=== PATIENT | female | born 1980 | race Caucasian/White ===

== ENCOUNTER 2019-03-29 23:54 | Observation (INO) | payer MEDICAID ==
[2019-03-30] MEDS ORDERED: Activated Charcoal/Sorbitol Susp 50 GM/240 ML Bottle PO ONE (00:06)
--- NOTE | 2019-03-30 00:34 | EDM.PDOCBH ---
ED HPI GENERAL MEDICAL PROBLEM - General Stated Complaint: OVERDOSE Time Seen by Provider: 03/30/19 00:29 Source of Information: Reports: Patient History Limitations: Reports: No Limitations - History of Present Illness INITIAL COMMENTS - FREE TEXT/NARRATIVE: 38 yo female who was brought in by EMS due to an alleged overdose.She apparently took several tabs of 0.5 mg Clonazepam and Lunesta. She came in with 30 tab bottles that were filled on 03/17 that were empty. She took to "end it all" and "make it stop". She feels hopeless, unworthy and a failure. She feels that she has been rejected by every one and is making every one miserable. She is being treated by a psychiatrist in [place]. Her diagnosis is MDD,ARCENIO and Panic attack Disorder. Aniya endorses dry mouth,and thirst but she denies any other symptoms. - Related Data Allergies Allergy/AdvReac Type Severity Reaction Status Date / Time aspirin Allergy Chest Verified 03/30/19 01:53 Presssure hydrocodone [From Vicodin] Allergy Hives Verified 03/30/19 01:53 Home Meds: Home Meds ClonazePAM [KlonoPIN] 0.5 mg PO BEDTIME PRN 03/30/19 [History] DULoxetine [Cymbalta] 120 mg PO DAILY 03/30/19 [History] Eszopiclone [Lunesta] 3 mg PO BEDTIME PRN 03/30/19 [History] Past Medical History Cardiovascular History: Reports: Hypertension Musculoskeletal History: Reports: Back Pain, Chronic Psychiatric History: Reports: Anxiety, Depression Endocrine/Metabolic History: Reports: Obesity/BMI 30+ - Past Surgical History GI Surgical History: Reports: Cholecystectomy Musculoskeletal Surgical History: Reports: Shoulder Surgery, Other (See Below) Other Musculoskeletal Surgeries/Procedures:: back surgery Social & Family History - Family History Family Medical History: Noncontributory - Caffeine Use Caffeine Use: Reports: Soda ED ROS GENERAL - Review of Systems Review Of Systems: ROS reveals no pertinent complaints other than HPI. ED EXAM, BEHAVIORAL HEALTH - Physical Exam Exam: See Below Exam Limited By: No Limitations General Appearance: Alert, Lethargic Ears: Normal External Exam Nose: Normal Inspection Throat/Mouth: Normal Inspection Head: Atraumatic, Normocephalic Neck: Normal Inspection Respiratory/Chest: No Respiratory Distress, Lungs Clear Cardiovascular: Normal Peripheral Pulses, No JVD, Tachycardia GI/Abdominal: Normal Bowel Sounds, Soft, Non-Tender Extremities: Normal Inspection Neurological: Alert, CN II-XII Intact, Normal Reflexes, Oriented x 3 Psychiatric: Alert, Normal Cognition, Oriented, Flat Affect, Withdrawn, Suicidal Plan, Suicidal Thoughts Skin Exam: Warm EKG INTERPRETATION EKG Date: 03/30/19 COURSE, BEHAVIORAL HEALTH COMP - Course Vital Signs: Last Vital Signs Temp 98.1 F 03/30/19 05:47 Pulse 84 03/30/19 05:47 Resp 18 03/30/19 05:47 BP 134/89 03/30/19 05:47 Pulse Ox 98 03/30/19 05:47 Orders, Labs, Meds: Active Orders 24 hr Category Date Time Status Patient Status [ADT] Routine ADT 03/30/19 01:04 Active Cardiac Monitoring [RC] CONTINUOUS Care 03/30/19 01:05 Active EKG Documentation Completion [RC] ASDIRECTED Care 03/30/19 00:06 Active Intake and Output [RC] QSHIFT Care 03/30/19 01:05 Active Oxygen Therapy [RC] PRN Care 03/30/19 01:04 Active Vital Signs [RC] Q4H Care 03/30/19 01:04 Active ACETAMINOPHEN [CHEM] AM Lab 03/30/19 06:18 Received COMPREHENSIVE METABOLIC PN,CMP [CHEM] AM Lab 03/30/19 06:18 Received SALICYLATE [CHEM] AM Lab 03/30/19 06:18 Received Sodium Chloride 0.9% [Saline Flush] Med 03/30/19 00:06 Active 10 ml FLUSH ASDIRECTED PRN Peripheral IV Insertion Adult [OM.PC] Routine Oth 03/30/19 00:06 Ordered Resuscitation Status Routine Resus Stat 03/30/19 01:04 Ordered EKG 12 Lead [EK] Routine Ther 03/30/19 00:06 Ordered Medication Orders Acetaminophen (Tylenol) 650 mg PO Q4H PRN PRN Reason: Pain Last Admin: 03/30/19 06:41 Dose: 650 mg Sodium Chloride (Saline Flush) 10 ml FLUSH ASDIRECTED PRN PRN Reason: Keep Vein Open Last Admin: 03/30/19 02:50 Dose: 10 ml Laboratory Tests 03/30/19 03/30/19 03/30/19 Range/Units 00:38 00:38 00:38 WBC 5.8 (4.5-12.0) X10-3/uL RBC 4.97 (3.23-5.20) x10(6)uL Hgb 13.2 (11.5-15.5) g/dL Hct 40.7 (30.0-51.3) % MCV 81.9 (80-96) fL MCH 26.6 L (27.7-33.6) pg MCHC 32.5 (32.2-35.4) g/dL RDW 19.1 H (11.5-15.5) % Plt Count 280 (125-369) X10(3)uL MPV 8.2 (7.4-10.4) fL Neut % (Auto) 47.9 (46-82) % Lymph % (Auto) 31.7 (13-37) % [place] % (Auto) 10.6 (4-12) % Eos % (Auto) 9 H (1.0-5.0) % Baso % (Auto) 1 (0-2) % Neut # (Auto) 2.9 (1.6-8.3) # Lymph # (Auto) 1.8 (0.6-5.0) # [place] # (Auto) 0.6 (0.0-1.3) # Eos # (Auto) 0.5 (0.0-0.8) # Baso # (Auto) 0.0 (0.0-0.2) # Sodium 139 (135-145) mmol/L Potassium 3.3 L (3.5-5.3) mmol/L Chloride 104 (100-110) mmol/L Carbon Dioxide 28 (21-32) mmol/L BUN 13 (7-18) mg/dL Creatinine 0.8 (0.55-1.02) mg/dL Est Cr Clr Drug Dosing TNP Estimated GFR (MDRD) > 60 (>60) BUN/Creatinine Ratio 16.3 (9-20) Glucose 130 H (80-116) mg/dL Calcium 8.8 (8.6-10.2) mg/dL Total Bilirubin 0.7 (0.1-1.3) mg/dL AST 16 D (5-25) IU/L ALT 26 D (12-36) U/L Alkaline Phosphatase 97 (56-112) IU/L Total Protein 7.1 (6.0-8.0) g/dL Albumin 3.6 (3.5-5.2) g/dL Globulin 3.5 g/dL Albumin/Globulin Ratio 1.0 HCG, Quant < 5 L (<5) mIU/mL Salicylates (<2.8) mg/dL Urine Opiates Screen (NEGATIVE) Ur Oxycodone Screen (NEGATIVE) Ur Propoxyphene Screen (NEGATIVE) Acetaminophen (<2) ug/mL Ur Barbituates Screen (NEGATIVE) Ur Tricyclics Screen (NEGATIVE) Ur Phencyclidine Scrn (NEGATIVE) Ur Amphetamine Screen (NEGATIVE) Urine MDMA Screen (NEGATIVE) U Benzodiazepines Scrn (NEGATIVE) U Cocaine Metab Screen (NEGATIVE) U Marijuana (THC) Screen (NEGATIVE) Ethyl Alcohol < 0.03 (<0.03) % 03/30/19 03/30/19 Range/Units 00:38 00:59 WBC (4.5-12.0) X10-3/uL RBC (3.23-5.20) x10(6)uL Hgb (11.5-15.5) g/dL Hct (30.0-51.3) % MCV (80-96) fL MCH (27.7-33.6) pg MCHC (32.2-35.4) g/dL RDW (11.5-15.5) % Plt Count (125-369) X10(3)uL MPV (7.4-10.4) fL Neut % (Auto) (46-82) % Lymph % (Auto) (13-37) % [place] % (Auto) (4-12) % Eos % (Auto) (1.0-5.0) % Baso % (Auto) (0-2) % Neut # (Auto) (1.6-8.3) # Lymph # (Auto) (0.6-5.0) # [place] # (Auto) (0.0-1.3) # Eos # (Auto) (0.0-0.8) # Baso # (Auto) (0.0-0.2) # Sodium (135-145) mmol/L Potassium (3.5-5.3) mmol/L Chloride (100-110) mmol/L Carbon Dioxide (21-32) mmol/L BUN (7-18) mg/dL Creatinine (0.55-1.02) mg/dL Est Cr Clr Drug Dosing Estimated GFR (MDRD) (>60) BUN/Creatinine Ratio (9-20) Glucose (80-116) mg/dL Calcium (8.6-10.2) mg/dL Total Bilirubin (0.1-1.3) mg/dL AST (5-25) IU/L ALT (12-36) U/L Alkaline Phosphatase (56-112) IU/L Total Protein (6.0-8.0) g/dL Albumin (3.5-5.2) g/dL Globulin g/dL Albumin/Globulin Ratio HCG, Quant (<5) mIU/mL Salicylates 2.2 L (<2.8) mg/dL Urine Opiates Screen Negative (NEGATIVE) Ur Oxycodone Screen Negative (NEGATIVE) Ur Propoxyphene Screen Negative (NEGATIVE) Acetaminophen < 2 L (<2) ug/mL Ur Barbituates Screen Negative (NEGATIVE) Ur Tricyclics Screen Negative (NEGATIVE) Ur Phencyclidine Scrn Negative (NEGATIVE) Ur Amphetamine Screen Negative (NEGATIVE) Urine MDMA Screen Negative (NEGATIVE) U Benzodiazepines Scrn Positive H (NEGATIVE) U Cocaine Metab Screen Negative (NEGATIVE) U Marijuana (THC) Screen Negative (NEGATIVE) Ethyl Alcohol (<0.03) % Medications Generic Name Dose Route Start Last Admin Trade Name Freq PRN Reason Stop Dose Admin Acetaminophen 650 mg 03/30/19 06:21 03/30/19 06:41 Tylenol PO 650 mg Q4H PRN Administration Pain Sodium Chloride 10 ml 03/30/19 00:06 03/30/19 02:50 Saline Flush FLUSH 10 ml ASDIRECTED PRN Administration Keep Vein Open Discontinued Medications Generic Name Dose Route Start Last Admin Trade Name Freq PRN Reason Stop Dose Admin Charcoal/Sorbitol 50 gm 03/30/19 00:06 03/30/19 00:43 Insta-Nadia Sorbitol PO 03/30/19 00:07 Not Given ONETIME ONE Sodium Chloride 1,000 mls @ 999 mls/hr 03/30/19 00:07 03/30/19 01:50 Normal Saline IV 03/30/19 01:07 999 mls/hr .BOLUS ONE Administration Departure - Departure Time of Disposition: 02:00 Disposition: Still A Patient 30 Condition: Good Clinical Impression: MDD (major depressive disorder), Suicide attempt - Discharge Information - Problem List & Annotations (1) Overdose SNOMED Code(s): 91006350 Code(s): T50.901A - POISONING BY UNSP DRUG/MEDS/BIOL SUBST, ACCIDENTAL, INIT Status: Acute Current Visit: Yes Qualifiers: Encounter type: initial encounter (2) Suicide attempt SNOMED Code(s): 72228713 Code(s): T14.91XA - SUICIDE ATTEMPT, INITIAL ENCOUNTER Status: Acute Current Visit: Yes (3) MDD (major depressive disorder) SNOMED Code(s): 279151005 Code(s): F32.9 - MAJOR DEPRESSIVE DISORDER, SINGLE EPISODE, UNSPECIFIED Status: Acute Current Visit: Yes Qualifiers: Major depression recurrence: recurrent Active/Remission status: currently active Psychotic features: with psychotic features (4) ARCENIO (generalized anxiety disorder) SNOMED Code(s): 05173425 Code(s): F41.1 - GENERALIZED ANXIETY DISORDER Status: Acute Current Visit : Yes - Problem List Review Problem List Initiated/Reviewed/Updated: Yes - My Orders Last 24 Hours: My Active Orders 03/30/19 00:06 EKG Documentation Completion [RC] ASDIRECTED Sodium Chloride 0.9% [Saline Flush] 10 ml FLUSH ASDIRECTED PRN Peripheral IV Insertion Adult [OM.PC] Routine EKG 12 Lead [EK] Routine 03/30/19 01:04 Patient Status [ADT] Routine Oxygen Therapy [RC] PRN Vital Signs [RC] Q4H Resuscitation Status Routine 03/30/19 01:05 Cardiac Monitoring [RC] CONTINUOUS Intake and Output [RC] QSHIFT 03/30/19 06:18 ACETAMINOPHEN [CHEM] AM COMPREHENSIVE METABOLIC PN,CMP [CHEM] AM SALICYLATE [CHEM] AM - Assessment/Plan Last 24 Hours: My Active Orders 03/30/19 00:06 EKG Documentation Completion [RC] ASDIRECTED Sodium Chloride 0.9% [Saline Flush] 10 ml FLUSH ASDIRECTED PRN Peripheral IV Insertion Adult [OM.PC] Routine EKG 12 Lead [EK] Routine 03/30/19 01:04 Patient Status [ADT] Routine Oxygen Therapy [RC] PRN Vital Signs [RC] Q4H Resuscitation Status Routine 03/30/19 01:05 Cardiac Monitoring [RC] CONTINUOUS Intake and Output [RC] QSHIFT 03/30/19 06:18 ACETAMINOPHEN [CHEM] AM COMPREHENSIVE METABOLIC PN,CMP [CHEM] AM SALICYLATE [CHEM] AM Plan: Aniya refused Oral activated charcoal. She states she has taken it before and it was the worst thing. She also declined an IV. She remained alert through out the ED stay. Poison board was contacted. A repeat acetaminophen level was ordered in 4hrs. Admit for observation was recommended. Possibly a 72 hr hold if it becomes necessary.
[2019-03-30] MEDS: Sodium Chloride 0.9% 1,000 ML IV ONE ×2 (00:43→01:50)
[2019-03-30 01:00] LABS: ACETAMINOPHEN < 2 ug/mL (<2)
[2019-03-30] MEDS: Sodium Chloride 0.9% 10 ML Syringe FLUSH PRN ×2 (02:50→07:58)
[2019-03-30] MEDS: Acetaminophen 325 MG Tab PO PRN (06:41)
[2019-03-30 07:05] LABS: ACETAMINOPHEN < 2 ug/mL (<2)
[2019-03-30] MEDS ORDERED: NICOTROL INH SCH (08:45)
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
[2019-03-30] MEDS: DULoxetine 60 MG Cap PO SCH (15:45)
--- NOTE | 2019-03-30 16:22 | PCM.DCSUM1 ---
Discharge Summary - Hospital Course HPI Initial Comments: 38 yo female who was brought in by EMS due to an overdose, she apparently took several tabs of 0.5 mg Clonazepam and Lunesta. She came in with 30 tab bottles that were filled on 03/17 that were empty per EMS notes. She feels hopeless, unworthy and a failure. Her friends were worried about her change in behavior and told her that they were going to take her to [facility], so she decided to take the pills to "give them a reason". Though she admits that she was trying to hide from them so they couldn't see her take them but her friend came up as she was drinking the water. They then called 1. She is normally treated by Dr Florez, psychiatrist at [facility]. She has an verified appointment with him for tomorrow 03/31 at 1130am. Her diagnosis is MDD,ARCENIO and Panic attack Disorder. She is on Cymbalta 120 mg daily though she states its written for 60 mg bid, Clonazepam and Lunesta. Denies any other medications. Does smoke a pack of cigarettes a day, uses a Nicotrol inhaler if she can't smoke. Had hysterectomy in December. First hospitalization was in September for similar situation. Spoke with roommate Poornima: stated they had called suicide hotline prior to her taking the pills which she stated they were of no help. Aniya also threatened to shoot herself. Poornima said that there are guns in the house but they are in a gun safe that Aniya does not know the combination of. Their friend Hope was the one that caught her taking the pills. They had offered to her either pack a bag and go to [place] or call 911. Diagnosis: Stroke: No - Discharge Data Discharge Date: 03/30/19 Discharge Disposition: DC/Tfer to Psych Hosp/Unit [facility] Condition: Stable - Referral to Home Health Primary Care Physician: PCP None - Discharge Diagnosis/Problem(s) (1) Suicide attempt SNOMED Code(s): 89909353 ICD Code: T14.91XA - SUICIDE ATTEMPT, INITIAL ENCOUNTER Status: Acute Current Visit: Yes (2) Overdose SNOMED Code(s): 75700477 ICD Code: T50.901A - POISONING BY UNSP DRUG/MEDS/BIOL SUBST, ACCIDENTAL, INIT Status: Acute Current Visit: Yes Qualifiers: Encounter type: initial encounter (3) ARCENIO (generalized anxiety disorder) SNOMED Code(s): 76586506 ICD Code: F41.1 - GENERALIZED ANXIETY DISORDER Status: Acute Current Visit: Yes (4) MDD (major depressive disorder) SNOMED Code(s): 512068144 ICD Code: F32.9 - MAJOR DEPRESSIVE DISORDER, SINGLE EPISODE, UNSPECIFIED Status: Acute Current Visit: Yes Qualifiers: Major depression recurrence: recurrent Active/Remission status: currently active Psychotic features: with psychotic features - Patient Summary/Data Hospital Course: Admitted for ICU observation for ingestion of Clonazepam and Lunesta possibly 18 days worth of pills, both bottles were empty that were filled on 03/17. Poison control recommended observation, patient had refused activated charcoal in ER. She has been sleepy, slowed speech, wobbly on her feet to the bathroom but able to follow commands, and carry on a conversation. Spoke with Dr Gautam Warner nurse at [facility], she relayed history of admission to Dr Florez, he felt she needed inpatient admission either [facility] or [facility] if she was need to be put on a hold. Her friend/roommate Poornima stopped this afternoon, was concerned that if she didn't go today that she would refuse transfer and have to be committed. Paperwork sent to [facility] in [place], for voluntary admission for suicide attempt. Yuridia, social worker palliative care spoke with [facility] who can transport her once ready for discharge. Patient did not want to go [facility] in [place]. - Patient Instructions Diet: Regular Diet as Tolerated Showering/Bathing: May Shower - Discharge Plan *PRESCRIPTION DRUG MONITORING PROGRAM REVIEWED*: Not Applicable *COPY OF PRESCRIPTION DRUG MONITORING REPORT IN PATIENT JASON: Not Applicable Home Medications: Home Meds ClonazePAM [KlonoPIN] 0.5 mg PO TID PRN 03/30/19 [History] DULoxetine [Cymbalta] 30 mg PO DAILY 03/30/19 [History] DULoxetine [Cymbalta] 60 mg PO DAILY 03/30/19 [History] Eszopiclone [Lunesta] 3 mg PO BEDTIME PRN 03/30/19 [History] Nicotine [Nicotrol] 24 - 64 mg IH DAILY PRN 03/30/19 [History] Forms: ED Department Discharge Referrals: PCP,None [Primary Care Provider] - - Discharge Summary/Plan Comment DC Time >30 min.: No - Patient Data Vitals - Most Recent: Last Vital Signs Temp 97.3 F 03/30/19 08:00 Pulse 74 03/30/19 08:00 Resp 18 03/30/19 08:00 BP 110/61 03/30/19 08:00 Pulse Ox 99 03/30/19 08:00 Weight - Most Recent: 258 lb 3.2 oz Lab Results - Last 24 hrs: Laboratory Results - last 24 hr 03/30/19 03/30/19 03/30/19 Range/Units 00:38 00:38 00:38 WBC 5.8 (4.5-12.0) X10-3/uL RBC 4.97 (3.23-5.20) x10(6)uL Hgb 13.2 (11.5-15.5) g/dL Hct 40.7 (30.0-51.3) % MCV 81.9 (80-96) fL MCH 26.6 L (27.7-33.6) pg MCHC 32.5 (32.2-35.4) g/dL RDW 19.1 H (11.5-15.5) % Plt Count 280 (125-369) X10(3)uL MPV 8.2 (7.4-10.4) fL Neut % (Auto) 47.9 (46-82) % Lymph % (Auto) 31.7 (13-37) % [place] % (Auto) 10.6 (4-12) % Eos % (Auto) 9 H (1.0-5.0) % Baso % (Auto) 1 (0-2) % Neut # (Auto) 2.9 (1.6-8.3) # Lymph # (Auto) 1.8 (0.6-5.0) # [place] # (Auto) 0.6 (0.0-1.3) # Eos # (Auto) 0.5 (0.0-0.8) # Baso # (Auto) 0.0 (0.0-0.2) # Sodium 139 (135-145) mmol/L Potassium 3.3 L (3.5-5.3) mmol/L Chloride 104 (100-110) mmol/L Carbon Dioxide 28 (21-32) mmol/L BUN 13 (7-18) mg/dL Creatinine 0.8 (0.55-1.02) mg/dL Est Cr Clr Drug Dosing TNP Estimated GFR (MDRD) > 60 (>60) BUN/Creatinine Ratio 16.3 (9-20) Glucose 130 H (80-116) mg/dL Calcium 8.8 (8.6-10.2) mg/dL Total Bilirubin 0.7 (0.1-1.3) mg/dL AST 16 D (5-25) IU/L ALT 26 D (12-36) U/L Alkaline Phosphatase 97 (56-112) IU/L Total Protein 7.1 (6.0-8.0) g/dL Albumin 3.6 (3.5-5.2) g/dL Globulin 3.5 g/dL Albumin/Globulin Ratio 1.0 HCG, Quant < 5 L (<5) mIU/mL Salicylates (<2.8) mg/dL Urine Opiates Screen (NEGATIVE) Ur Oxycodone Screen (NEGATIVE) Ur Propoxyphene Screen (NEGATIVE) Acetaminophen (<2) ug/mL Ur Barbituates Screen (NEGATIVE) Ur Tricyclics Screen (NEGATIVE) Ur Phencyclidine Scrn (NEGATIVE) Ur Amphetamine Screen (NEGATIVE) Urine MDMA Screen (NEGATIVE) U Benzodiazepines Scrn (NEGATIVE) U Cocaine Metab Screen (NEGATIVE) U Marijuana (THC) Screen (NEGATIVE) Ethyl Alcohol < 0.03 (<0.03) % 03/30/19 03/30/19 03/30/19 Range/Units 00:38 00:59 06:18 WBC (4.5-12.0) X10-3/uL RBC (3.23-5.20) x10(6)uL Hgb (11.5-15.5) g/dL Hct (30.0-51.3) % MCV (80-96) fL MCH (27.7-33.6) pg MCHC (32.2-35.4) g/dL RDW (11.5-15.5) % Plt Count (125-369) X10(3)uL MPV (7.4-10.4) fL Neut % (Auto) (46-82) % Lymph % (Auto) (13-37) % [place] % (Auto) (4-12) % Eos % (Auto) (1.0-5.0) % Baso % (Auto) (0-2) % Neut # (Auto) (1.6-8.3) # Lymph # (Auto) (0.6-5.0) # [place] # (Auto) (0.0-1.3) # Eos # (Auto) (0.0-0.8) # Baso # (Auto) (0.0-0.2) # Sodium 140 (135-145) mmol/L Potassium 3.4 L (3.5-5.3) mmol/L Chloride 106 (100-110) mmol/L Carbon Dioxide 26 (21-32) mmol/L BUN 13 (7-18) mg/dL Creatinine 0.7 (0.55-1.02) mg/dL Est Cr Clr Drug Dosing 91.02 Estimated GFR (MDRD) > 60 (>60) BUN/Creatinine Ratio 18.6 (9-20) Glucose 98 (80-116) mg/dL Calcium 8.1 L (8.6-10.2) mg/dL Total Bilirubin 0.5 (0.1-1.3) mg/dL AST 13 D (5-25) IU/L ALT 21 D (12-36) U/L Alkaline Phosphatase 90 (56-112) IU/L Total Protein 6.4 (6.0-8.0) g/dL Albumin 3.2 L (3.5-5.2) g/dL Globulin 3.2 g/dL Albumin/Globulin Ratio 1.0 HCG, Quant (<5) mIU/mL Salicylates 2.2 L 2.0 L (<2.8) mg/dL Urine Opiates Screen Negative (NEGATIVE) Ur Oxycodone Screen Negative (NEGATIVE) Ur Propoxyphene Screen Negative (NEGATIVE) Acetaminophen < 2 L < 2 L (<2) ug/mL Ur Barbituates Screen Negative (NEGATIVE) Ur Tricyclics Screen Negative (NEGATIVE) Ur Phencyclidine Scrn Negative (NEGATIVE) Ur Amphetamine Screen Negative (NEGATIVE) Urine MDMA Screen Negative (NEGATIVE) U Benzodiazepines Scrn Positive H (NEGATIVE) U Cocaine Metab Screen Negative (NEGATIVE) U Marijuana (THC) Screen Negative (NEGATIVE) Ethyl Alcohol (<0.03) % Med Orders - Current: Current Medications Acetaminophen (Tylenol) 650 mg PO Q4H PRN PRN Reason: Pain Last Admin: 03/30/19 06:41 Dose: 650 mg Duloxetine HCl (Cymbalta) 120 mg PO DAILY MEIR Last Admin: 03/30/19 15:45 Dose: 120 mg Nicotrol Inhaler * (Ptom) 6 - 16 each INH ASDIRECTED MEIR Sodium Chloride (Saline Flush) 10 ml FLUSH ASDIRECTED PRN PRN Reason: Keep Vein Open Last Admin: 03/30/19 07:58 Dose: 10 ml Discontinued Medications Charcoal/Sorbitol (Insta-Nadia Sorbitol) 50 gm PO ONETIME ONE Stop: 03/30/19 00:07 Last Admin: 03/30/19 00:43 Dose: Not Given Sodium Chloride (Normal Saline) 1,000 mls @ 999 mls/hr IV .BOLUS ONE Stop: 03/30/19 01:07 Last Admin: 03/30/19 01:50 Dose: 999 mls/hr
[2019-03-30] MEDS: Ibuprofen 400 MG Tab PO PRN (18:00)
[2019-03-31] MEDS: Ibuprofen 400 MG Tab PO PRN ×3 (01:33→11:55)
[2019-03-31] MEDS: Acetaminophen 325 MG Tab PO PRN ×3 (01:35→11:56)
[2019-03-31] MEDS: DULoxetine 60 MG Cap PO SCH (10:07)
[2019-03-31 11:33] LABS: ACETAMINOPHEN < 2 ug/mL (<2)
--- NOTE | 2019-03-31 12:08 | PCM.PN ---
- General Info Date of Service: 03/31/19 Admission Dx/Problem (Free Text): Patient had phone call yesterday from [facility] [place](where we anticipated her being transferred to), after the call the phone was not removed as ordered and nursing found patient had wrapped phone cord around her neck just before midnight, no ligature markings when found and patient was saturating well. She states this morning she is willing to psychiatry treatment if her friend Poornima takes her. If she has to go by ambulance she would refuse transport. No difficulty breathing. No pain. states "her brain tells her to do these things." - Patient Data Vitals - Most Recent: Last Vital Signs Temp 97.5 F 03/31/19 08:00 Pulse 72 03/31/19 00:00 Resp 16 03/31/19 08:00 BP 135/92 H 03/31/19 08:00 Pulse Ox 99 03/31/19 08:00 Weight - Most Recent: 258 lb 3.2 oz I&O - Last 24 Hours: Intake & Output 03/30/19 03/31/19 03/31/19 22:59 06:59 14:59 Intake Total 500 355 Output Total 0 200 Balance 500 155 Lab Results Last 24 Hours: Laboratory Results - last 24 hr 03/31/19 03/31/19 03/31/19 Range/Units 11:07 11:07 11:07 WBC 4.8 (4.5-12.0) X10-3/uL RBC 4.65 (3.23-5.20) x10(6)uL Hgb 12.7 (11.5-15.5) g/dL Hct 37.9 (30.0-51.3) % MCV 81.6 (80-96) fL MCH 27.2 L (27.7-33.6) pg MCHC 33.4 (32.2-35.4) g/dL RDW 19.3 H (11.5-15.5) % Plt Count 238 (125-369) X10(3)uL MPV 8.4 (7.4-10.4) fL Neut % (Auto) 35.6 L (46-82) % Lymph % (Auto) 41.4 H (13-37) % [place] % (Auto) 12.1 H (4-12) % Eos % (Auto) 10 H (1.0-5.0) % Baso % (Auto) 1 (0-2) % Neut # (Auto) 1.7 (1.6-8.3) # Lymph # (Auto) 2.0 (0.6-5.0) # [place] # (Auto) 0.6 (0.0-1.3) # Eos # (Auto) 0.5 (0.0-0.8) # Baso # (Auto) 0.0 (0.0-0.2) # Sodium 141 (135-145) mmol/L Potassium 3.8 (3.5-5.3) mmol/L Chloride 106 (100-110) mmol/L Carbon Dioxide 29 (21-32) mmol/L BUN 11 (7-18) mg/dL Creatinine 0.7 (0.55-1.02) mg/dL Est Cr Clr Drug Dosing 91.02 mL/min Estimated GFR (MDRD) > 60 (>60) BUN/Creatinine Ratio 15.7 (9-20) Glucose 91 (80-116) mg/dL Calcium 8.4 L (8.6-10.2) mg/dL Total Bilirubin 0.4 (0.1-1.3) mg/dL AST 17 D (5-25) IU/L ALT 22 (12-36) U/L Alkaline Phosphatase 84 (56-112) IU/L Total Protein 6.4 (6.0-8.0) g/dL Albumin 3.2 L (3.5-5.2) g/dL Globulin 3.2 g/dL Albumin/Globulin Ratio 1.0 Salicylates 2.5 L (<2.8) mg/dL Acetaminophen < 2 L (<2) ug/mL Med Orders - Current: Current Medications Acetaminophen (Tylenol) 650 mg PO Q4H PRN PRN Reason: Pain Last Admin: 03/31/19 11:56 Dose: 650 mg Duloxetine HCl (Cymbalta) 120 mg PO DAILY MEIR Last Admin: 03/31/19 10:07 Dose: 120 mg Ibuprofen (Motrin) 400 mg PO Q4H PRN PRN Reason: pain Last Admin: 03/31/19 11:55 Dose: 400 mg Nicotrol Inhaler * (Ptom) 6 - 16 each INH ASDIRECTED MEIR Sodium Chloride (Saline Flush) 10 ml FLUSH ASDIRECTED PRN PRN Reason: Keep Vein Open Last Admin: 03/30/19 07:58 Dose: 10 ml Discontinued Medications Charcoal/Sorbitol (Insta-Nadia Sorbitol) 50 gm PO ONETIME ONE Stop: 03/30/19 00:07 Last Admin: 03/30/19 00:43 Dose: Not Given Sodium Chloride (Normal Saline) 1,000 mls @ 999 mls/hr IV .BOLUS ONE Stop: 03/30/19 01:07 Last Admin: 03/30/19 01:50 Dose: 999 mls/hr - Exam General: Alert, Oriented, Cooperative, No Acute Distress Neck: Supple, Trachea Midline, Other (no ecchymosis, mild tenderness to lower neck) Lungs: Clear to Auscultation, Normal Respiratory Effort Cardiovascular: Regular Rate, Regular Rhythm GI/Abdominal Exam: Normal Bowel Sounds, Soft, Non-Tender, No Distention Extremities: No Pedal Edema Skin: Warm, Dry, Intact - Problem List & Annotations (1) Suicide attempt SNOMED Code(s): 09171661 Code(s): T14.91XA - SUICIDE ATTEMPT, INITIAL ENCOUNTER Status: Acute Current Visit: Yes (2) Overdose SNOMED Code(s): 75273855 Code(s): T50.901A - POISONING BY UNSP DRUG/MEDS/BIOL SUBST, ACCIDENTAL, INIT Status: Acute Current Visit: Yes Qualifiers: Encounter type: initial encounter (3) ARCENIO (generalized anxiety disorder) SNOMED Code(s): 46710787 Code(s): F41.1 - GENERALIZED ANXIETY DISORDER Status: Acute Current Visit : Yes (4) MDD (major depressive disorder) SNOMED Code(s): 367749791 Code(s): F32.9 - MAJOR DEPRESSIVE DISORDER, SINGLE EPISODE, UNSPECIFIED Status: Acute Current Visit: Yes Qualifiers: Major depression recurrence: recurrent Active/Remission status: currently active Psychotic features: with psychotic features - Problem List Review Problem List Initiated/Reviewed/Updated: Yes - My Orders Last 24 Hours: My Active Orders 03/30/19 13:45 DULoxetine [Cymbalta] 120 mg PO DAILY 03/30/19 17:54 Cooling Warming Measures [RC] ASDIRECTED Ibuprofen [Motrin] 400 mg PO Q4H PRN Heat Therapy [OM.PC] Routine - Plan Plan:: Called [facility], they requested repeat salicylates, acetaminophen, comp and CBC along with facesheet, H&P for review. Bed approval is pending. Emergency Admission for mental illness treatment was filled out as it was not found in paper chart from ER. Will continue to find bed placement and if she refuses then would proceed with involuntary committal paperwork.
[2019-03-31] MEDS ORDERED: LORazepam 1 MG Tab PO ONE (14:16)
== END 2019-03-31 15:00 ==
LOC: FB.ED 23:54 → FB.MS 03-30 01:15 → FB.ICU 03-30 01:19
PROVIDERS: ADMIT Family Medicine; ATTEND Family Medicine
DX: T42.4X2A Poisoning by benzodiazepines, intentional self-harm, initial encounter (principal); T42.6X2A Poisoning by other antiepileptic and sedative-hypnotic drugs, intentional self-harm, initial encounter; F41.1 Generalized anxiety disorder; F32.9 Major depressive disorder, single episode, unspecified; I10 Essential (primary) hypertension; G43.909 Migraine, unspecified, not intractable, without status migrainosus; F17.210 Nicotine dependence, cigarettes, uncomplicated; E66.9 Obesity, unspecified; Z88.6 Allergy status to analgesic agent; Z88.5 Allergy status to narcotic agent
CPT/HCPCS: 36415; 80053; 80305; 80320; 80329; 84702; 85025; 93005; 99285; A9270; G0378; J7030; G0480

== ENCOUNTER 2019-07-14 00:07 | Emergency (ER) | payer MEDICAID ==
[2019-07-14] MEDS ORDERED: Lidocaine 2% Viscous Solution 15 ML Cup TOP ONE (00:55)
--- NOTE | 2019-07-14 01:31 | EDM.PDOC ---
ED HPI GENERAL MEDICAL PROBLEM - General Chief Complaint: General Stated Complaint: possible broke nose; lip Time Seen by Provider: 07/14/19 00:15 Source of Information: Reports: Patient History Limitations: Reports: No Limitations - History of Present Illness INITIAL COMMENTS - FREE TEXT/NARRATIVE: Patient presented to the ED because of a fall. She was drinking tonight and while climbing upstairs she missed a stem and fell facedown on the floor. She c/ o lip pain and pain on her right knee. There was no LOC after the fall, denies any headache or neck pain. - Related Data Allergies Allergy/AdvReac Type Severity Reaction Status Date / Time aspirin Allergy Chest Verified 07/14/19 00:57 Presssure, Throat Closes hydrocodone [From Vicodin] Allergy Hives, Itch Verified 07/14/19 00:57 Home Meds: Home Meds DULoxetine [Cymbalta] 120 mg PO DAILY 03/30/19 [History] .Risperdal 1 dose PO BEDTIME 07/14/19 [History] busPIRone HCl [busPIRone] 30 mg PO BID 07/14/19 [History] Past Medical History HEENT History: Reports: Other (See Below) Other HEENT History: Facial injury from a fall. 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 Neurological History: Reports: Migraines Psychiatric History: Reports: Anxiety, Depression, Suicide Attempt, Other (See Below) Other Psychiatric History: Takes medications. Endocrine/Metabolic History: Reports: Obesity/BMI 30+ Hematologic History: Reports: Anemia, Iron Deficiency - Infectious Disease History Infectious Disease History: Reports: Chicken Pox - Past Surgical History GI Surgical History: Reports: Cholecystectomy Female Surgical History: Reports: Hysterectomy Musculoskeletal Surgical History: Reports: Shoulder Surgery, Other (See Below) Other Musculoskeletal Surgeries/Procedures:: Back surgery X2. Social & Family History - Family History Family Medical History: Noncontributory - Tobacco Use Smoking Status *Q: Current Every Day Smoker Years of Tobacco use: 20 Packs/Tins Daily: 1 - Caffeine Use Caffeine Use: Reports: Soda - Alcohol Use Days Per Week of Alcohol Use: 1 Number of Drinks Per Day: 4 Total Drinks Per Week: 4 - Recreational Drug Use Recreational Drug Use: No ED ROS GENERAL - Review of Systems Review Of Systems: See Below Constitutional: Reports: No Symptoms HEENT: Reports: No Symptoms Respiratory: Reports: No Symptoms Cardiovascular: Reports: No Symptoms Endocrine: Reports: No Symptoms GI/Abdominal: Reports: No Symptoms : Reports: No Symptoms Musculoskeletal: Reports: No Symptoms Skin: Reports: No Symptoms Neurological: Reports: No Symptoms Psychiatric: Reports: No Symptoms Hematologic/Lymphatic: Reports: No Symptoms ED EXAM, HEAD INJURY - Physical Exam Exam: See Below Exam Limited By: No Limitations General Appearance: Alert, No Apparent Distress Head: Atraumatic, Normocephalic Eyes: Bilateral Eye: PERRL Ears: Normal External Exam, Normal Canal, Hearing Grossly Normal Nose: Normal Inspection, Normal Mucousa, No Blood Throat/Mouth: Normal Inspection, Normal Gums, Other (swelling and abrasion mid upper lip) Neck: Non-Tender, Full Range of Motion, Normal Alignment Respiratory: No Respiratory Distress, Lungs Clear, Normal Breath Sounds Cardiovascular: Normal Peripheral Pulses, Regular Rate, Rhythm, No Edema, No Gallop, No JVD, No Murmur GI/Abdominal Exam: Normal Bowel Sounds, Soft, Non-Tender, No Organomegaly Back Exam: Normal Inspection, Full Range of Motion Extremities: Normal Inspection, Non-Tender, Other (abrasion below the right knee ) Neurologic: physician coder II-XII nml As Tested, No Motor/Sensory Deficits, Alert, Normal Mood/Affect, Oriented x 3 Course - Vital Signs Text/Narrative:: Head/Facial CT-neg Rt knee xray -n3g viscous lidocaine applied by ED nurse on the abrasions. Last Recorded V/S: Last Vital Signs Temp 36.6 C 07/14/19 00:10 Pulse 96 07/14/19 00:10 Resp 18 07/14/19 00:10 BP 130/78 07/14/19 00:10 Pulse Ox 98 07/14/19 00:10 - Orders/Labs/Meds Orders: Active Orders 24 hr Category Date Time Status Head wo Cont [CT] Stat Exams 07/14/19 00:31 Taken Knee 3V Rt [CR] Stat Exams 07/14/19 00:38 Taken Max Facial Sinus wo Cont [CT] Stat Exams 07/14/19 00:31 Taken Meds: Medications Discontinued Medications Generic Name Dose Route Start Last Admin Trade Name Kel PRN Reason Stop Dose Admin Lidocaine HCl 15 ml 07/14/19 00:55 07/14/19 01:24 Xylocaine 2% Viscous TOP 07/14/19 00:56 15 ml ONETIME ONE Administration Departure - Departure Time of Disposition: 02:30 Disposition: Home, Self-Care 01 Condition: Good Clinical Impression: Closed head injury, Abrasion - Discharge Information Instructions: Abrasion, Head Injury, Adult, [id number] Referrals: PCP,None [Primary Care Provider] - Forms: ED Department Discharge Additional Instructions: Please read discharge instructions on closed head injury and abrasion Apply ice to sore areas Take ibuprofen 800 mg with tylenol 1000 mg every 8 hours as needed for pain Follow up as needed Sepsis Event Note - Evaluation Sepsis Screening Result: No Definite Risk - Focused Exam Vital Signs: Vital Signs Temp Pulse Resp BP Pulse Ox 07/14/19 00:10 36.6 C 96 18 130/78 98 Date Exam was Performed: 07/14/19 Time Exam was Performed: 07:51 - My Orders Last 24 Hours: My Active Orders 07/14/19 00:31 Head wo Cont [CT] Stat Max Facial Sinus wo Cont [CT] Stat 07/14/19 00:38 Knee 3V Rt [CR] Stat - Assessment/Plan Last 24 Hours: My Active Orders 07/14/19 00:31 Head wo Cont [CT] Stat Max Facial Sinus wo Cont [CT] Stat 07/14/19 00:38 Knee 3V Rt [CR] Stat
--- NOTE | 2019-07-14 11:06 | CR ---
INDICATION: Right knee pain after a fall. RIGHT KNEE: Three views of the right knee were obtained 07/14/2019 - no comparisons. Minimal hypertrophic degenerative changes are noted at the lateral aspect of the tibia, lateral intercondylar spine, and at the patellofemoral joint. Joint spaces appear to be fairly well maintained. Slight bulge at the suprapatellar bursa raises question of a minimal knee joint effusion but should be correlated clinically. Overall bone density appears to be normal. No significant focal bony abnormality was identified of an acute nature - no acute fracture or dislocation. IMPRESSION: 1. No definite acute fracture or dislocation. 2. Minimal osteoarthritis. 3. Question minimal knee joint effusion. MTDD
== END 2019-07-14 02:00 | disposition home or self-care (01) ==
LOC: FB.ED 00:07
DX: S09.90XA Unspecified injury of head, initial encounter (principal); S00.511A Abrasion of lip, initial encounter; S80.211A Abrasion, right knee, initial encounter; I10 Essential (primary) hypertension; E66.9 Obesity, unspecified; F41.9 Anxiety disorder, unspecified; F32.9 Major depressive disorder, single episode, unspecified; F17.210 Nicotine dependence, cigarettes, uncomplicated; Z88.6 Allergy status to analgesic agent; Z79.899 Other long term (current) drug therapy; Z90.49 Acquired absence of other specified parts of digestive tract; Z90.710 Acquired absence of both cervix and uterus; W10.9XXA Fall (on) (from) unspecified stairs and steps, initial encounter
CPT/HCPCS: 70450; 70486; 73562; 99284; A9270

== ENCOUNTER 2020-08-15 17:47 | Emergency (ER) | payer SELFPAY ==
[2020-08-15] MEDS ORDERED: Sodium Chloride 0.9% 1,000 ML IV ONE (18:03)
[2020-08-15] MEDS ORDERED: Thiamine 200 MG/2 ML MDV IVPUSH ONE (18:04)
[2020-08-15] MEDS ORDERED: Labetalol 20 MG/4 ML Syringe IVPUSH ONE (18:11)
--- NOTE | 2020-08-15 18:24 | EDM.PDOC ---
ED HPI GENERAL MEDICAL PROBLEM - General Chief Complaint: Neuro Symptoms/Deficits Stated Complaint: ALTERED MENTAL STATUS Time Seen by Provider: 08/15/20 18:05 Source of Information: Reports: Patient, EMS, Other (Boyfriend) History Limitations: Reports: Altered Mental Status - History of Present Illness INITIAL COMMENTS - FREE TEXT/NARRATIVE: Boyfriend states that he and patient consumed alcohol Saturday night into Saturday, and left her alone at her apartment at 0200 on 08/14/20. He then received texts from her that she wanted to kill herself by overdosing on pills. He subsequently checked on her at 1530 on 08/14/20 and found her to be sleeping in bed, so did not disturb her, but removed medications and alcohol from the apartment. He then checked on her again at 1650 today and found her face down on the floor wrapped in a blanket, and noted her to be confused with slurred speech. Patient states she has no memory of events after she went out drinking Saturday night. Denies suicidal ideation or attempt and denies intentionally overdosing on medications. Onset Date: 08/14/20 - Related Data Allergies Allergy/AdvReac Type Severity Reaction Status Date / Time aspirin Allergy Chest Verified 08/15/20 18:27 Presssure, Throat Closes hydrocodone [From Vicodin] Allergy Hives, Itch Verified 08/15/20 18:27 Home Meds: Home Meds DULoxetine [Cymbalta] 120 mg PO DAILY 03/30/19 [History] .Risperdal 1 dose PO BEDTIME 07/14/19 [History] busPIRone HCl [busPIRone] 30 mg PO BID 07/14/19 [History] Past Medical History HEENT History: Reports: Other (See Below) Other HEENT History: Facial injury from a fall. Cardiovascular History: Reports: Hypertension Gastrointestinal History: Reports: None Genitourinary History: Reports: None [employer] History: Reports: Other [employer] History: Musculoskeletal History: Reports: Back Pain, Chronic Other Musculoskeletal History: History fracture of right ankle. Neurological History: Reports: Migraines Psychiatric History: Reports: Anxiety, Depression, Suicide Attempt, Other (See Below) Other Psychiatric History: Takes medications. Endocrine/Metabolic History: Reports: Obesity/BMI 30+ Hematologic History: Reports: Anemia, Iron Deficiency - Infectious Disease History Infectious Disease History: Reports: Chicken Pox - Past Surgical History GI Surgical History: Reports: Cholecystectomy Female Surgical History: Reports: Hysterectomy Musculoskeletal Surgical History: Reports: Shoulder Surgery, Other (See Below) Other Musculoskeletal Surgeries/Procedures:: Back surgery X2. Social & Family History - Family History Family Medical History: No Pertinent Family History - Caffeine Use Caffeine Use: Reports: Soda - Alcohol Use Alcohol Use Frequency: Rarely ED ROS GENERAL - Review of Systems Review Of Systems: Comprehensive ROS is negative, except as noted in HPI. ED EXAM, NEURO - Physical Exam Exam: See Below Exam Limited By: No Limitations General Appearance: Alert, WD/WN, No Apparent Distress Eye Exam: Bilateral Eye: EOMI, PERRL Throat/Mouth: No Airway Compromise Head Exam: Atraumatic, Normocephalic Neck: Normal Inspection Respiratory/Chest: No Respiratory Distress, Lungs Clear, Normal Breath Sounds Cardiovascular: No Murmur, Tachycardia (regular rhythm) GI/Abdominal: Normal Bowel Sounds, Soft, Non-Tender Neurological: Alert, Normal Mood/Affect, CN II-XII Intact, No Motor/Sensory Deficits, Other (Oriented to time and place, disoriented to person. Speech is slurred) Extremities: Normal Range of Motion, Other (Erythema to bilateral knees, no tenderness) Skin Exam: Warm, Dry, Intact #1 Interpretation EKG Date: 08/15/20 Time: 18:14 Rhythm: Other (sinus tachycardia) Rate (Beats/Min): 116 [place]: Normal P-Wave: Present QRS: Normal ST-T: Other (T wave inversion lateral leads) QT: Normal Comparison: Change From Previous EKG Course - Vital Signs Last Recorded V/S: Last Vital Signs Temp 36.8 C 08/15/20 17:47 Pulse 115 H 08/15/20 17:47 Resp 28 H 08/15/20 17:47 BP 167/125 H 08/15/20 17:47 Pulse Ox 98 08/15/20 17:47 T98.2F, BP 154/99, HR 120, RR 24, Sa02 100% RA - Orders/Labs/Meds Orders: Active Orders 24 hr Category Date Time Status EKG Documentation Completion [RC] ASDIRECTED Care 08/15/20 18:00 Active Brice Catheter Insertion [Insert Urinary Catheter] [OM. Care 08/15/20 18:15 Ordered PC] Q24H Urinary Catheter Assessment [RC] QSHIFT Care 08/15/20 18:05 Active Cervical Spine wo Cont [CT] Stat Exams 08/15/20 18:10 Ordered Chest 1V Frontal [CR] Stat Exams 08/15/20 18:00 Ordered Head wo Cont [CT] Stat Exams 08/15/20 18:08 Ordered Pelvis 1V or 2V [CR] Stat Exams 08/15/20 18:00 Ordered AMMONIA, PLASMA Stat Lab 08/15/20 18:01 Ordered CULTURE BLOOD [BC] Urgent Lab 08/15/20 18:01 Ordered CULTURE BLOOD [BC] Urgent Lab 08/15/20 18:01 Ordered Sodium Chloride 0.9% [Normal Saline] 1,000 ml Med 08/15/20 18:03 Active IV .BOLUS Blood Culture x2 Reflex Set [OM.PC] Urgent Oth 08/15/20 18:01 Ordered EKG 12 Lead [EK] Stat Ther 08/15/20 18:00 Ordered Medication Orders Sodium Chloride (Normal Saline) 1,000 mls @ 999 mls/hr IV .BOLUS ONE Stop: 08/15/20 19:03 Labs: Laboratory Tests 08/15/20 08/15/20 08/15/20 Range/Units 17:58 17:58 17:58 WBC 18.0 H (3.0-10.3) x10-3/uL RBC 5.01 (3.60-5.20) x10(6)uL Hgb 15.1 (11.4-15.5) g/dL Hct 45.7 (34.2-48.2) % MCV 91.3 (76.7-100.5) fL MCH 30.2 (23.9-33.9) pg MCHC 33.1 (31.9-34.8) g/dL RDW 13.8 (12.3-16.5) % Plt Count 256 (151-488) x10(3)uL MPV 8.7 (7.1-12.4) fL Add Manual Diff Yes Neutrophils % (Manual) 87 H (46-82) % Lymphocytes % (Manual) 3 L (13-37) % Monocytes % (Manual) 10 (4-12) % PT 11.0 (9.0-11.1) sec INR 1.02 (1.00-1.24) APTT 24.4 (24.4-33.2) SECONDS Sodium 143 (135-145) mmol/L Potassium 3.5 (3.5-5.3) mmol/L Chloride 102 (100-110) mmol/L Carbon Dioxide 23 (21-32) mmol/L BUN 9 (7-18) mg/dL Creatinine 1.0 (0.55-1.02) mg/dL Est Cr Clr Drug Dosing TNP Estimated GFR (MDRD) > 60 (>60) BUN/Creatinine Ratio 9.0 (9-20) Glucose 147 H (80-116) mg/dL Lactic Acid (0.4-2.0) mmol/L Calcium 9.4 (8.6-10.2) mg/dL Magnesium (1.8-2.5) mg/dL Total Bilirubin 1.1 (0.1-1.3) mg/dL AST 39 H D (5-25) IU/L ALT 72 H D (12-36) U/L Alkaline Phosphatase 99 (56-112) IU/L Creatine Kinase (60-160) IU/L Troponin I (4.0-60.3) pg/mL Total Protein 7.7 (6.0-8.0) g/dL Albumin 4.2 (3.5-5.2) g/dL Globulin 3.5 g/dL Albumin/Globulin Ratio 1.2 Urine Color (YELLOW) Urine Appearance (CLEAR) Urine pH (5.0-6.5) Ur Specific [place] (1.010-1.025) Urine Protein (NEGATIVE) mg/dL Urine Glucose (UA) (NORMAL) mg/dL Urine Ketones (NEGATIVE) mg/dL Urine Occult Blood (NEGATIVE) Urine Nitrite (NEGATIVE) Urine Bilirubin (NEGATIVE) Urine Urobilinogen (NEGATIVE) mg/dL Ur Leukocyte Esterase (NEGATIVE) Urine RBC (0-5) Urine WBC (0-5) Ur Squamous Epith Cells (NS,R,O) Amorphous Sediment Urine Bacteria (NS) Urine HCG, Qual (NEGATIVE) Salicylates (<2.8) mg/dL Urine Opiates Screen (NEGATIVE) Ur Oxycodone Screen (NEGATIVE) Ur Propoxyphene Screen (NEGATIVE) Acetaminophen (<2) ug/mL Ur Barbituates Screen (NEGATIVE) Ur Tricyclics Screen (NEGATIVE) Ur Phencyclidine Scrn (NEGATIVE) Ur Amphetamine Screen (NEGATIVE) Urine MDMA Screen (NEGATIVE) U Benzodiazepines Scrn (NEGATIVE) U Cocaine Metab Screen (NEGATIVE) U Marijuana (THC) Screen (NEGATIVE) Ethyl Alcohol (<0.03) % 08/15/20 08/15/20 08/15/20 Range/Units 17:58 17:58 17:58 WBC (3.0-10.3) x10-3/uL RBC (3.60-5.20) x10(6)uL Hgb (11.4-15.5) g/dL Hct (34.2-48.2) % MCV (76.7-100.5) fL MCH (23.9-33.9) pg MCHC (31.9-34.8) g/dL RDW (12.3-16.5) % Plt Count (151-488) x10(3)uL MPV (7.1-12.4) fL Add Manual Diff Neutrophils % (Manual) (46-82) % Lymphocytes % (Manual) (13-37) % Monocytes % (Manual) (4-12) % PT (9.0-11.1) sec INR (1.00-1.24) APTT (24.4-33.2) SECONDS Sodium (135-145) mmol/L Potassium (3.5-5.3) mmol/L Chloride (100-110) mmol/L Carbon Dioxide (21-32) mmol/L BUN (7-18) mg/dL Creatinine (0.55-1.02) mg/dL Est Cr Clr Drug Dosing Estimated GFR (MDRD) (>60) BUN/Creatinine Ratio (9-20) Glucose (80-116) mg/dL Lactic Acid 1.7 (0.4-2.0) mmol/L Calcium (8.6-10.2) mg/dL Magnesium 2.0 (1.8-2.5) mg/dL Total Bilirubin (0.1-1.3) mg/dL AST (5-25) IU/L ALT (12-36) U/L Alkaline Phosphatase (56-112) IU/L Creatine Kinase 560 H* (60-160) IU/L Troponin I 43.2 (4.0-60.3) pg/mL Total Protein (6.0-8.0) g/dL Albumin (3.5-5.2) g/dL Globulin g/dL Albumin/Globulin Ratio Urine Color (YELLOW) Urine Appearance (CLEAR) Urine pH (5.0-6.5) Ur Specific [place] (1.010-1.025) Urine Protein (NEGATIVE) mg/dL Urine Glucose (UA) (NORMAL) mg/dL Urine Ketones (NEGATIVE) mg/dL Urine Occult Blood (NEGATIVE) Urine Nitrite (NEGATIVE) Urine Bilirubin (NEGATIVE) Urine Urobilinogen (NEGATIVE) mg/dL Ur Leukocyte Esterase (NEGATIVE) Urine RBC (0-5) Urine WBC (0-5) Ur Squamous Epith Cells (NS,R,O) Amorphous Sediment Urine Bacteria (NS) Urine HCG, Qual (NEGATIVE) Salicylates (<2.8) mg/dL Urine Opiates Screen (NEGATIVE) Ur Oxycodone Screen (NEGATIVE) Ur Propoxyphene Screen (NEGATIVE) Acetaminophen (<2) ug/mL Ur Barbituates Screen (NEGATIVE) Ur Tricyclics Screen (NEGATIVE) Ur Phencyclidine Scrn (NEGATIVE) Ur Amphetamine Screen (NEGATIVE) Urine MDMA Screen (NEGATIVE) U Benzodiazepines Scrn (NEGATIVE) U Cocaine Metab Screen (NEGATIVE) U Marijuana (THC) Screen (NEGATIVE) Ethyl Alcohol (<0.03) % 08/15/20 08/15/20 08/15/20 Range/Units 17:58 17:58 18:13 WBC (3.0-10.3) x10-3/uL RBC (3.60-5.20) x10(6)uL Hgb (11.4-15.5) g/dL Hct (34.2-48.2) % MCV (76.7-100.5) fL MCH (23.9-33.9) pg MCHC (31.9-34.8) g/dL RDW (12.3-16.5) % Plt Count (151-488) x10(3)uL MPV (7.1-12.4) fL Add Manual Diff Neutrophils % (Manual) (46-82) % Lymphocytes % (Manual) (13-37) % Monocytes % (Manual) (4-12) % PT (9.0-11.1) sec INR (1.00-1.24) APTT (24.4-33.2) SECONDS Sodium (135-145) mmol/L Potassium (3.5-5.3) mmol/L Chloride (100-110) mmol/L Carbon Dioxide (21-32) mmol/L BUN (7-18) mg/dL Creatinine (0.55-1.02) mg/dL Est Cr Clr Drug Dosing Estimated GFR (MDRD) (>60) BUN/Creatinine Ratio (9-20) Glucose (80-116) mg/dL Lactic Acid (0.4-2.0) mmol/L Calcium (8.6-10.2) mg/dL Magnesium (1.8-2.5) mg/dL Total Bilirubin (0.1-1.3) mg/dL AST (5-25) IU/L ALT (12-36) U/L Alkaline Phosphatase (56-112) IU/L Creatine Kinase (60-160) IU/L Troponin I (4.0-60.3) pg/mL Total Protein (6.0-8.0) g/dL Albumin (3.5-5.2) g/dL Globulin g/dL Albumin/Globulin Ratio Urine Color Yellow (YELLOW) Urine Appearance Cloudy (CLEAR) Urine pH 5.0 (5.0-6.5) Ur Specific [place] 1.030 H (1.010-1.025) Urine Protein 30 H (NEGATIVE) mg/dL Urine Glucose (UA) Normal (NORMAL) mg/dL Urine Ketones 50 H (NEGATIVE) mg/dL Urine Occult Blood Negative (NEGATIVE) Urine Nitrite Negative (NEGATIVE) Urine Bilirubin Negative (NEGATIVE) Urine Urobilinogen Normal (NEGATIVE) mg/dL Ur Leukocyte Esterase Negative (NEGATIVE) Urine RBC 0-5 (0-5) Urine WBC 0-5 (0-5) Ur Squamous Epith Cells Moderate H (NS,R,O) Amorphous Sediment Many Urine Bacteria Few H (NS) Urine HCG, Qual (NEGATIVE) Salicylates 1.0 L (<2.8) mg/dL Urine Opiates Screen (NEGATIVE) Ur Oxycodone Screen (NEGATIVE) Ur Propoxyphene Screen (NEGATIVE) Acetaminophen < 2 L (<2) ug/mL Ur Barbituates Screen (NEGATIVE) Ur Tricyclics Screen (NEGATIVE) Ur Phencyclidine Scrn (NEGATIVE) Ur Amphetamine Screen (NEGATIVE) Urine MDMA Screen (NEGATIVE) U Benzodiazepines Scrn (NEGATIVE) U Cocaine Metab Screen (NEGATIVE) U Marijuana (THC) Screen (NEGATIVE) Ethyl Alcohol < 0.03 (<0.03) % 08/15/20 08/15/20 Range/Units 18:13 18:13 WBC (3.0-10.3) x10-3/uL RBC (3.60-5.20) x10(6)uL Hgb (11.4-15.5) g/dL Hct (34.2-48.2) % MCV (76.7-100.5) fL MCH (23.9-33.9) pg MCHC (31.9-34.8) g/dL RDW (12.3-16.5) % Plt Count (151-488) x10(3)uL MPV (7.1-12.4) fL Add Manual Diff Neutrophils % (Manual) (46-82) % Lymphocytes % (Manual) (13-37) % Monocytes % (Manual) (4-12) % PT (9.0-11.1) sec INR (1.00-1.24) APTT (24.4-33.2) SECONDS Sodium (135-145) mmol/L Potassium (3.5-5.3) mmol/L Chloride (100-110) mmol/L Carbon Dioxide (21-32) mmol/L BUN (7-18) mg/dL Creatinine (0.55-1.02) mg/dL Est Cr Clr Drug Dosing Estimated GFR (MDRD) (>60) BUN/Creatinine Ratio (9-20) Glucose (80-116) mg/dL Lactic Acid (0.4-2.0) mmol/L Calcium (8.6-10.2) mg/dL Magnesium (1.8-2.5) mg/dL Total Bilirubin (0.1-1.3) mg/dL AST (5-25) IU/L ALT (12-36) U/L Alkaline Phosphatase (56-112) IU/L Creatine Kinase (60-160) IU/L Troponin I (4.0-60.3) pg/mL Total Protein (6.0-8.0) g/dL Albumin (3.5-5.2) g/dL Globulin g/dL Albumin/Globulin Ratio Urine Color (YELLOW) Urine Appearance (CLEAR) Urine pH (5.0-6.5) Ur Specific [place] (1.010-1.025) Urine Protein (NEGATIVE) mg/dL Urine Glucose (UA) (NORMAL) mg/dL Urine Ketones (NEGATIVE) mg/dL Urine Occult Blood (NEGATIVE) Urine Nitrite (NEGATIVE) Urine Bilirubin (NEGATIVE) Urine Urobilinogen (NEGATIVE) mg/dL Ur Leukocyte Esterase (NEGATIVE) Urine RBC (0-5) Urine WBC (0-5) Ur Squamous Epith Cells (NS,R,O) Amorphous Sediment Urine Bacteria (NS) Urine HCG, Qual Negative (NEGATIVE) Salicylates (<2.8) mg/dL Urine Opiates Screen Negative (NEGATIVE) Ur Oxycodone Screen Negative (NEGATIVE) Ur Propoxyphene Screen Negative (NEGATIVE) Acetaminophen (<2) ug/mL Ur Barbituates Screen Negative (NEGATIVE) Ur Tricyclics Screen Positive H (NEGATIVE) Ur Phencyclidine Scrn Negative (NEGATIVE) Ur Amphetamine Screen Negative (NEGATIVE) Urine MDMA Screen Negative (NEGATIVE) U Benzodiazepines Scrn Negative (NEGATIVE) U Cocaine Metab Screen Negative (NEGATIVE) U Marijuana (THC) Screen Positive H (NEGATIVE) Ethyl Alcohol (<0.03) % Meds: Medications Generic Name Dose Route Start Last Admin Trade Name Freq PRN Reason Stop Dose Admin Sodium Chloride 1,000 mls @ 999 mls/hr 08/15/20 18:03 Normal Saline IV 08/15/20 19:03 .BOLUS ONE Discontinued Medications Generic Name Dose Route Start Last Admin Trade Name Freq PRN Reason Stop Dose Admin Labetalol HCl 10 mg 08/15/20 18:11 Labetalol 20 Mg/4 Ml Syringe IVPUSH 08/15/20 18:12 ONETIME ONE Protocol Thiamine HCl 100 mg 08/15/20 18:04 Thiamine 200 Mg/2 Ml Mdv IVPUSH 08/15/20 18:05 ONETIME ONE - Radiology Interpretation Free Text/Narrative:: CXR: No acute process. (ED provider interpretation) Pelvis Xray: No fracture/dislocation. (ED provider interpretation) - Re-Assessments/Exams Free Text/Narrative Re-Assessment/Exam: 08/15/20 19:00 Patient care transferred to Dr. Retana at 1900 Departure - Departure Time of Disposition: 19:00 Disposition: Still A Patient 30 Clinical Impression: Altered level of consciousness - Discharge Information Referrals: PCP,None [Primary Care Provider] - Forms: ED Department Discharge Sepsis Event Note (ED) - Focused Exam Vital Signs: Vital Signs Temp Pulse Resp BP Pulse Ox 08/15/20 17:47 36.8 C 115 H 28 H 167/125 H 98 - My Orders Last 24 Hours: My Active Orders 08/15/20 18:00 EKG Documentation Completion [RC] ASDIRECTED Chest 1V Frontal [CR] Stat Pelvis 1V or 2V [CR] Stat EKG 12 Lead [EK] Stat 08/15/20 18:01 AMMONIA, PLASMA Stat CULTURE BLOOD [BC] Urgent CULTURE BLOOD [BC] Urgent Blood Culture x2 Reflex Set [OM.PC] Urgent 08/15/20 18:03 Sodium Chloride 0.9% [Normal Saline] 1,000 ml IV .BOLUS 08/15/20 18:05 Urinary Catheter Assessment [RC] QSHIFT 08/15/20 18:08 Head wo Cont [CT] Stat 08/15/20 18:10 Cervical Spine wo Cont [CT] Stat 08/15/20 18:15 Brice Catheter Insertion [Insert Urinary Catheter] [OM.PC] Q24H - Assessment/Plan Last 24 Hours: My Active Orders 08/15/20 18:00 EKG Documentation Completion [RC] ASDIRECTED Chest 1V Frontal [CR] Stat Pelvis 1V or 2V [CR] Stat EKG 12 Lead [EK] Stat 08/15/20 18:01 AMMONIA, PLASMA Stat CULTURE BLOOD [BC] Urgent CULTURE BLOOD [BC] Urgent Blood Culture x2 Reflex Set [OM.PC] Urgent 08/15/20 18:03 Sodium Chloride 0.9% [Normal Saline] 1,000 ml IV .BOLUS 08/15/20 18:05 Urinary Catheter Assessment [RC] QSHIFT 08/15/20 18:08 Head wo Cont [CT] Stat 08/15/20 18:10 Cervical Spine wo Cont [CT] Stat 08/15/20 18:15 Brice Catheter Insertion [Insert Urinary Catheter] [OM.PC] Q24H
[2020-08-15 18:29] LABS: ACETAMINOPHEN < 2 ug/mL (<2)
--- NOTE | 2020-08-15 19:43 | CT ---
INDICATION: Found face down on floor apparently for 24 hours, confused, unable to follow direction. CT HEAD WITHOUT CONTRAST: Spiral 3.75 mm axial sections were obtained through the brain without contrast 08/15/20 and were compared with 07/14/19. Total exam DLP was 1270.76 mGy-cm. No shift of midline structures, ventricular abnormalities or abnormal areas of density were identified. The orbits appeared intact. Cranium appears to be intact. Mastoid air cells were well aerated. The paranasal sinuses showed evidence of thickening of the lining of the right maxillary antrum and left sphenoidal air cells as well as a few ethmoidal air cells. However, no air-fluid levels or complete opacification was noted. Subcutaneous calcifying nodules are noted as previously in the scalp. Little change is noted compared with the previous study. IMPRESSION: 1. No acute intracranial abnormalities. 2. Sinus changes could represent chronic sinusitis, possibly allergic - correlate clinically. 3. Calcifying subcutaneous nodules again noted, unchanged. Report was called to Dr. Unger at 1907 hours 08/15/20. [facility]
--- NOTE | 2020-08-15 19:51 | CT ---
INDICATION: Found face down on floor apparently for 24 hours, confused, unable to follow directions. CT CERVICAL SPINE WITHOUT CONTRAST: Spiral 2.5 mm axial sections were obtained through the cervical spine with sagittal and coronal reconstructions 08/15/20 - no comparisons. Total exam DLP was 523.37 mGy-cm. No evidence of an acute fracture or dislocation was identified. The upper lungs included on the study showed no gross abnormalities but some scarring was noted in the apices especially on the left. The odontoid appeared to be intact. The atlas appears to be intact. Degenerative changes of moderate degree are noted at the odontoatlantian joint with only slight narrowing of the joint space. Hypertrophic degenerative changes are noted from C4 through C7, most prominent at C5-6, C6-7 with narrowing of the disc spaces at all levels, again more prominent at C5-6 and C6-7. Neural foramina do not appear grossly narrowed although slight narrowing is noted at C5-6 on the right. IMPRESSION: 1. No acute fracture or dislocation. 2. Osteoarthritis with degenerative disc disease as noted above. Report was called to Dr. Unger at 1907 hours. [facility]
[2020-08-15] MEDS ORDERED: Sodium Chloride 0.9% 1,000 ML IV SCH (20:15)
--- NOTE | 2020-08-16 10:52 | CR ---
INDICATION: Possible trauma. PELVIS ONE VIEW: Portable AP view of the pelvis was obtained 08/15/[address] of the abdomen and pelvis from 12/07/19. There is again noted fusion at the L5-S1 vertebral bodies with rods and pedicle screws appearing intact. Degenerative changes are noted at the right hip joint with slight narrowing of the craniolateral joint space. An acute fracture or dislocation was not identified. Degenerative changes noted at the right sacroiliac joint joint and minimally on the left. Bone density appeared to be normal. Exogenous obesity is noted. IMPRESSION: 1. No definite acute bone or joint abnormality. 2. 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 3. Fusion L5-S1. 4. Exogenous obesity. [facility]
--- NOTE | 2020-08-16 10:55 | CR ---
INDICATION: Possible trauma. CHEST ONE VIEW: AP upright view of the chest was obtained 08/15/20 - no comparisons. The heart, mediastinum and bony thorax appear to be unremarkable. Overlying EKG leads are noted. An active infiltrate, effusion, contusion, or pneumothorax was not identified. Evidence of exogenous obesity is noted. IMPRESSION: No acute process. [facility]
--- NOTE | 2020-08-16 18:19 | PCM.SN.2 ---
- Free Text/Narrative Note: Lab and radiology report was reviewed with Dr Cornel Durbin. Metabolic Encephalopathy Rhabdomyolysis Drug Overdose Plan: Transfer the patient to [place] for further care Hold Thiamine and Labetalol for now NS @ 150 ml/hr
== END 2020-08-15 20:15 ==
LOC: FB.ED 17:47
DX: R41.82 Altered mental status, unspecified (principal); I10 Essential (primary) hypertension; R00.0 Tachycardia, unspecified; E66.9 Obesity, unspecified; Z79.899 Other long term (current) drug therapy; Z88.6 Allergy status to analgesic agent; Z88.5 Allergy status to narcotic agent
CPT/HCPCS: 36415; 51702; 70450; 71045; 72125; 72170; 80053; 80143; 80179; 80305-QW; 80307; 81001; 81025; 82140; 82550; 83605; 83735; 84484; 85025; 85610; 85730; 87040; 93005; 99285-25; J7030